=== PATIENT | female | born 1990 | race Caucasian/White ===

== ENCOUNTER 2024-08-18 17:28 | Emergency (ER) | payer BC ==
[2024-08-18 17:56] LABS: BASOPHILS PERCENT AUTO 0.3 % (0.0-1.0); EOSINOPHILS ABSOLUTE AUTO 0.1 K/mm3 (0.0-0.4); EOSINOPHILS PERCENT AUTO 1.1 % (0.0-6.0); HEMATOCRIT 36.6 % (37.0-47.0); HEMOGLOBIN 12.4 gm/dl (12.0-16.0); IMMATURE GRAN ABSOLUTE AUTO 0.07 K/mm3 (0.00-0.05); IMMATURE GRAN PERCENT AUTO 0.6 % (0.0-0.4); LYMPHOCYTES ABSOLUTE AUTO 2.5 K/mm3 (1.0-4.8); LYMPHOCYTES PERCENT AUTO 22.9 % (24.0-44.0); MEAN CORPUSCULAR HEMOGLOBIN 28.4 pg (28.0-32.0); MEAN CORPUSCULAR HGB CONC 33.9 g/dl (32.0-36.0); MEAN CORPUSCULAR VOLUME 83.9 fl (83.0-99.0); MEAN PLATELET VOLUME 10.1 fl (9.4-12.3); MONOCYTES ABSOLUTE AUTO 0.8 K/mm3 (0.0-0.8); MONOCYTES PERCENT AUTO 7.3 % (0.0-8.0); NEUTROPHILS ABSOLUTE AUTO 7.3 K/mm3 (1.8-7.7); NEUTROPHILS PERCENT AUTO 67.8 % (41.0-71.0); PLATELET COUNT,PLT 222 K/mm3 (150-400); RED BLOOD CELL COUNT 4.36 M/mm3 (4.10-5.30); WHITE BLOOD CELL COUNT,WBC 10.83 K/mm3 (3.9-11.3)
[2024-08-18 18:15] LABS: APPEARANCE,URINE SLT CLOUDY (Clear); BILIRUBIN,URINE NEGATIVE (Negative); COLOR,URINE YELLOW (Yellow); GLUCOSE,URINE NEGATIVE (Negative); KETONES,URINE TRACE (Negative); LEUKOCYTE ESTERASE,URINE TRACE (Negative); NITRITE,URINE NEGATIVE (Negative); OCCULT BLOOD,URINE TRACE-INTACT (Negative); PH,URINE 6.5 (5.0-8.0); PROTEIN,URINE 3+ (Negative); UROBILINOGEN,URINE 0.2 (0.2-1.0)
[2024-08-18 18:24] LABS: INR 0.95; PROTHROMBIN TIME 10.1 SECONDS (9.7-12.0)
[2024-08-18 18:30] LABS: A/G RATIO 0.6 (1-2); ALBUMIN 2.7 g/dl (3.4-5.0); ANION GAP 16.7 (5-15); BILIRUBIN TOTAL 0.3 mg/dL (0.2-1.0); CALCIUM 9.7 mg/dL (8.5-10.1); CREATININE 0.6 mg/dL (0.55-1.02); POTASSIUM,K 3.7 mEq/L (3.5-5.1); PROTEIN TOTAL,TP 6.9 g/dl (6.4-8.2)
[2024-08-18 18:35] LABS: BACTERIA,URINE MODERATE /hpf (FEW); MUCUS,URINE FEW /hpf (FEW); RBC,URINE 0-5 /hpf (0-5); SQUAMOUS EPITHELIAL CELLS,UR 20-30 /hpf (0-5)
[2024-08-18 18:38] LABS: PTT,PARTIAL THROMBOPLSTIN TIME 25.9 SECONDS (21.7-31.4)
== END 2024-08-18 18:38 | disposition other institution (70) ==
LOC: JD.ED 17:28
DX: O9A.213 Injury, poisoning and certain other consequences of external causes complicating pregnancy, third trimester (principal); S16.1XXA Strain of muscle, fascia and tendon at neck level, initial encounter; O26.893 Other specified pregnancy related conditions, third trimester; R10.2 Pelvic and perineal pain; R03.0 Elevated blood-pressure reading, without diagnosis of hypertension; Z79.82 Long term (current) use of aspirin; Z79.899 Other long term (current) drug therapy; V49.49XA Driver injured in collision with other motor vehicles in traffic accident, initial encounter; Z3A.36 36 weeks gestation of pregnancy
CPT/HCPCS: 36415; 80053; 81001; 83605; 83690; 85025; 85384; 85610; 85730; 86850; 86900; 86901; 87086; 99284

== ENCOUNTER 2024-08-18 18:39 | Inpatient (IN) | payer BC ==
[2024-08-18 20:03] LABS: CREATININE,URINE RAND 91.2 mg/dL (30.0-125.0); PROTEIN CREATININE RATIO,URINE 1071.3 mg/g (0-149); PROTEIN,URINE RANDOM 97.7 mg/dL (0.0-11.8)
[2024-08-18] MEDS: NIFEdipine 10 MG Cap PO ONE (20:39)
[2024-08-18] MEDS ORDERED: Sodium Chloride 0.9% 10 ML Syringe FLUSH PRN (20:50)
[2024-08-18] MEDS ORDERED: Ondansetron 4 MG/2 ML SDV IVPUSH PRN (20:50)
[2024-08-18] MEDS ORDERED: Calcium Gluconate 10% 1 GM/10 ML SDV IV PRN (20:50)
[2024-08-18] MEDS ORDERED: Nalbuphine 10 MG/1 ML Vial IVPUSH PRN (20:50)
[2024-08-18] MEDS ORDERED: Lidocaine 1% 50 ML MDV INJECT PRN (20:50)
[2024-08-18] MEDS ORDERED: Magnesium Sulf/Wat 2 GM/50 mL 2 GM in Premix Bag 1 BAG IV SCH (20:50)
[2024-08-18] MEDS: Labetalol 100 MG/20 ML MDV IVPUSH ONE ×2 (21:16→21:29)
[2024-08-18] MEDS: Lactated Ringers 1,000 ML IV SCH (21:39)
[2024-08-18] MEDS: Magnesium Sulf/Wat 4 GM/50 mL 4 GM in Premix Bag 1 BAG IV ONE (21:46)
[2024-08-18] MEDS: Magnesium Sulf/Wat 2 GM/50 mL 2 GM in Premix Bag 1 BAG IV ONE (22:02)
[2024-08-18] MEDS: Labetalol 100 MG/20 ML MDV ONE (22:03)
[2024-08-18] MEDS: Magnesium Sulf/Wat 40GM/1000mL 40 GM/1,000 ML BAG IV SCH (22:23)
[2024-08-18] MEDS: Sodium Chloride 0.9% 10 ML Syringe FLUSH SCH (22:25)
[2024-08-18] MEDS: Oxytocin/0.9 % Sodium Chloride 30 UNIT/500 ML BAG IV SCH (22:54)
[2024-08-19] MEDS ORDERED: Ropivacaine 0.2% PF 2 MG/ML 20 ML SDV ONE
[2024-08-19] MEDS: Acetaminophen 325 MG Tab PO PRN (03:11)
[2024-08-19] MEDS ORDERED: diphenhydrAMINE 50 MG/ML SDV IVPUSH PRN (07:39)
[2024-08-19] MEDS ORDERED: ePHEDrine 50 MG/ML SDV IVPUSH PRN (07:39)
[2024-08-19] MEDS: Bupivacaine/fentaNYL/NS 100 ML Bag EPIDUR PRN (10:07)
[2024-08-19] MEDS: fentaNYL 100 MCG/2 ML SDV EPIDUR PRN (10:08)
[2024-08-19] MEDS ORDERED: Tranexamic Acid 1,000 MG/10 ML Vial ONE (17:32)
[2024-08-19] MEDS: Oxytocin/0.9 % Sodium Chloride 30 UNIT/500 ML BAG IV SCH (18:28)
[2024-08-19] MEDS: Misoprostol 200 MCG Tab RECTAL ONE (18:41)
[2024-08-19] MEDS ORDERED: Hydrocortisone Acetate 25 MG Supp RECTAL PRN (20:18)
[2024-08-19] MEDS ORDERED: Simethicone 80 MG Tab.Chew PO PRN (20:18)
[2024-08-19] MEDS ORDERED: Oxytocin/0.9 % Sodium Chloride 30 UNIT/500 ML BAG IV SCH (20:18)
[2024-08-19] MEDS ORDERED: Magnesium Hydroxide 400 MG/5 ML Susp 30 ML Cup PO PRN (20:18)
[2024-08-19] MEDS ORDERED: Acetaminophen 325 MG Tab PO PRN (20:18)
[2024-08-19] MEDS: Witch Hazel Medicated Pads 40/Jar TOP PRN (22:04)
[2024-08-19] MEDS: Ibuprofen 600 MG Tab PO SCH (22:05)
[2024-08-19] MEDS: Benzocaine/Menthol 20%-0.5% Spray 78 GM Cannister TOP PRN (22:05)
[2024-08-19] MEDS: Docusate Sodium 100 MG Cap PO PRN (22:08)
[2024-08-19] MEDS: Labetalol 100 MG/20 ML MDV IVPUSH ONE (22:37)
[2024-08-19] MEDS: NIFEdipine 30 MG Tab.ER PO SCH (23:04)
[2024-08-19] MEDS: Lactated Ringers 1,000 ML IV SCH (23:06)
[2024-08-20] MEDS ORDERED: NIFEdipine 30 MG Tab.ER PO SCH ×2 (09:00→21:00)
[2024-08-20] MEDS: Prenatal Multivitamin with Calcium/Folic Acid/Iron Tab PO SCH (09:03)
== END 2024-08-21 15:45 | disposition home or self-care (01) | DRG 560 ==
LOC: JD.OBCHECK 18:39 → JD.OB 18:40 → JD.OBCHECK 08-19 01:17 → JD.OB 08-19 01:18 → OBSVTOIN 08-19 18:22 → JD.OB 08-19 18:23
PROVIDERS: ADMIT Obstetrics & Gynecology; ATTEND Obstetrics & Gynecology
PROC: 3E0R3BZ Introduction of Anesthetic Agent into Spinal Canal, Percutaneous Approach (ICD-10-PCS; principal; 2024-08-19)
PROC: 10E0XZZ Delivery of Products of Conception, External Approach (ICD-10-PCS; principal; 2024-08-19)
PROC: 3E033VJ Introduction of Other Hormone into Peripheral Vein, Percutaneous Approach (ICD-10-PCS; principal; 2024-08-19)
PROC: 10907ZC Drainage of Amniotic Fluid, Therapeutic from Products of Conception, Via Natural or Artificial Opening (ICD-10-PCS; principal; 2024-08-19)
DX: O34.219 Maternal care for unspecified type scar from previous cesarean delivery (principal); O11.4 Pre-existing hypertension with pre-eclampsia, complicating childbirth; O99.344 Other mental disorders complicating childbirth; O99.214 Obesity complicating childbirth; O16.4 Unspecified maternal hypertension, complicating childbirth; Z98.890 Other specified postprocedural states; Z79.899 Other long term (current) drug therapy; Z3A.36 36 weeks gestation of pregnancy; Z37.0 Single live birth
CPT/HCPCS: 36415; 51701; 51702; 59025; 59409; 82570; 84156; 86592; 86850; 86900; 86901; A9270-GY; J1920; J2795; J3010; J3475; J3490; J7120; J7999

== ENCOUNTER 2024-08-23 17:22 | Emergency (ER) | payer BC ==
[2024-08-23] MEDS: Sodium Chloride 0.9% 10 ML Syringe FLUSH PRN (18:29)
[2024-08-23 18:30] LABS: BASOPHILS PERCENT AUTO 0.3 % (0.0-1.0); EOSINOPHILS ABSOLUTE AUTO 0.4 K/mm3 (0.0-0.4); EOSINOPHILS PERCENT AUTO 3.7 % (0.0-6.0); HEMATOCRIT 31.3 % (37.0-47.0); HEMOGLOBIN 10.7 gm/dl (12.0-16.0); IMMATURE GRAN ABSOLUTE AUTO 0.15 K/mm3 (0.00-0.05); IMMATURE GRAN PERCENT AUTO 1.4 % (0.0-0.4); LYMPHOCYTES ABSOLUTE AUTO 2.4 K/mm3 (1.0-4.8); LYMPHOCYTES PERCENT AUTO 22.4 % (24.0-44.0); MEAN CORPUSCULAR HEMOGLOBIN 28.3 pg (28.0-32.0); MEAN CORPUSCULAR HGB CONC 34.2 g/dl (32.0-36.0); MEAN CORPUSCULAR VOLUME 82.8 fl (83.0-99.0); MONOCYTES ABSOLUTE AUTO 0.8 K/mm3 (0.0-0.8); MONOCYTES PERCENT AUTO 7.8 % (0.0-8.0); NEUTROPHILS ABSOLUTE AUTO 6.8 K/mm3 (1.8-7.7); NEUTROPHILS PERCENT AUTO 64.4 % (41.0-71.0); PLATELET COUNT,PLT 262 K/mm3 (150-400); RED BLOOD CELL COUNT 3.78 M/mm3 (4.10-5.30); WHITE BLOOD CELL COUNT,WBC 10.54 K/mm3 (3.9-11.3)
[2024-08-23 18:55] LABS: A/G RATIO 0.6 (1-2); ALANINE AMINOTRANSFERASE,ALT 35 U/L (14-59); ALBUMIN 2.5 g/dl (3.4-5.0); ALKALINE PHOSPHATASE 64 U/L (46-116); ANION GAP 15.5 (5-15); ASPARTATE AMNIOTRANSFERASE,AST 19 U/L (15-37); BILIRUBIN TOTAL 0.3 mg/dL (0.2-1.0); BLOOD UREA NITROGEN,BUN 10 mg/dL (7-18); BUN/CREATININE RATIO 16.7 (14-18); CALCIUM 9.8 mg/dL (8.5-10.1); CARBON DIOXIDE,CO2 25 mEq/L (21-32); CHLORIDE,CL 105 mEq/L (98-107); CREATININE 0.6 mg/dL (0.55-1.02); ESTIMATED GFR 121 mL/min (>60); GLUCOSE RANDOM 132 mg/dL (70-99); POTASSIUM,K 3.5 mEq/L (3.5-5.1); PROTEIN TOTAL,TP 6.5 g/dl (6.4-8.2); SODIUM,NA 142 mEq/L (136-145)
[2024-08-23] MEDS: Labetalol 100 MG/20 ML MDV IVPUSH ONE (19:21)
[2024-08-23 19:36] LABS: APPEARANCE,URINE CLOUDY (Clear); BILIRUBIN,URINE NEGATIVE (Negative); COLOR,URINE PINK (Yellow); GLUCOSE,URINE NEGATIVE (Negative); KETONES,URINE NEGATIVE (Negative); LEUKOCYTE ESTERASE,URINE 2+ (Negative); NITRITE,URINE NEGATIVE (Negative); OCCULT BLOOD,URINE 3+ (Negative); PH,URINE 6.5 (5.0-8.0); PROTEIN,URINE 2+ (Negative); UROBILINOGEN,URINE 0.2 (0.2-1.0)
[2024-08-23] MEDS: Cephalexin 500 MG Cap PO ONE (19:41)
[2024-08-23 19:56] LABS: BACTERIA,URINE MODERATE /hpf (FEW); MUCUS,URINE FEW /hpf (FEW); RBC,URINE TOO NUMEROUS TO CNT /hpf (0-5); SQUAMOUS EPITHELIAL CELLS,UR 20-30 /hpf (0-5); WBC CLUMPS,URINE FEW /hpf (NOT SEEN); WBC,URINE >100 /hpf (0-5)
== END 2024-08-23 20:57 | disposition home or self-care (01) ==
LOC: JD.ED 17:22
DX: O14.95 Unspecified pre-eclampsia, complicating the puerperium (principal); M54.2 Cervicalgia; Z88.8 Allergy status to other drugs, medicaments and biological substances; Z79.899 Other long term (current) drug therapy
CPT/HCPCS: 36415; 72125; 80053; 81001; 83880; 85025; 86140; 87086; 93005; 96374; 99284; A9270; J1920; 93010